=== PATIENT | female | born 1975 | race Caucasian/White ===

== ENCOUNTER 2022-12-08 08:38 | Emergency (ER) | payer SELFPAY ==
[2022-12-08 10:00] LABS: SARS-CoV-2 NAA Rapid Test Not Detected (NotDetected)
[2022-12-08] MEDS ORDERED: Dexamethasone 10 MG/ML VIAL ONE (11:12)
== END 2022-12-08 11:43 | disposition home or self-care (01) ==
LOC: ERS 08:38
DX: J18.9 Pneumonia, unspecified organism (principal); J02.9 Acute pharyngitis, unspecified; H66.91 Otitis media, unspecified, right ear; I10 Essential (primary) hypertension; F17.290 Nicotine dependence, other tobacco product, uncomplicated; Z20.822 Contact with and (suspected) exposure to COVID-19
CPT/HCPCS: 71045; 87081; 87430; J1100

== ENCOUNTER 2023-02-24 13:59 | Emergency (ER) | payer SELFPAY | END 2023-02-24 23:23 | disposition home or self-care (01) | LOC: ERS 13:59 | DX: J02.9 Acute pharyngitis, unspecified (principal); J01.90 Acute sinusitis, unspecified; I10 Essential (primary) hypertension; F17.290 Nicotine dependence, other tobacco product, uncomplicated | CPT/HCPCS: 71045 ==

== ENCOUNTER 2024-01-12 15:40 | Emergency (ER) | payer SELFPAY ==
[2024-01-12 17:14] LABS: #Basophils 0.06 10x3/uL (0.0-0.2); %Basophils 0.7 % (0.0-1.0); %Eosinophils 1.8 % (0.0-10.0); %Lymphocytes 33.2 % (21.0-51.0); %Monocytes 8.8 % (0.0-10.0); %Neutrophils 55.3 % (42.0-75.0); Hematocrit 39.7 % (36.0-47.0); Hemoglobin 13.7 g/dL (12.0-16.0); Mean Corpuscular HGB CONC 34.5 g/dL (32.0-36.0); Mean Corpuscular Hemoglobin 28.5 pg (27.0-31.0); Mean Corpuscular Volume 82.5 fL (78.0-98.0); Mean Platelet Volume 10.6 fL (7.4-10.4); Platelet Count 301 10x3/uL (130-400); RBC Distribution Width 12.6 % (11.5-14.5); Red Blood Cell (RBC) Count 4.81 mill/uL (4.20-5.40)
[2024-01-12 17:34] LABS: Troponin I 0.016 ng/mL (< 0.028)
[2024-01-12 17:46] LABS: ALT (SGPT) 15 U/L (8-55); AST (SGOT) 15 U/L (5-34); Albumin 3.8 g/dL (3.5-5.0); Alkaline Phosphatase 77 U/L (40-110); Anion Gap 14 mmol/L (10-20); BUN (Urea Nitrogen) 14 mg/dL (7.0-18.7); Bilirubin, Total 0.4 mg/dL (0.2-1.2); Calc. Creatinine Clearance 0 mL/min (70-130); Calcium 9.4 mg/dL (7.8-10.44); Carbon Dioxide 25 mmol/L (22-29); Chloride 104 mmol/L (98-107); Estimated GFR 86; Globulin 3.6 g/dL (2.4-3.5); Glucose 109 mg/dL (70-105); Potassium 3.9 mmol/L (3.5-5.1); Protein, Total 7.4 g/dL (6.0-8.3); Sodium 139 mmol/L (136-145)
[2024-01-12] MEDS ORDERED: Ketorolac Tromethamine 30 MG (1 mL) VIAL ONE (18:32)
[2024-01-12 18:58] LABS: Troponin I 0.012 ng/mL (< 0.028)
== END 2024-01-12 19:51 | disposition home or self-care (01) ==
LOC: ERS 15:40
DX: M94.0 Chondrocostal junction syndrome [Tietze] (principal); I10 Essential (primary) hypertension; F17.290 Nicotine dependence, other tobacco product, uncomplicated
CPT/HCPCS: 71046; 71250; 80053; 84484; 85025; 93005; 96374; J1885